=== PATIENT | female | born 1975 | race African-American/Black ===

== ENCOUNTER 2016-10-16 10:36 | Emergency (ER) | payer SELFPAY ==
[~2016-10-16] VITALS: Ht 162.6 cm; Wt 68.0 kg
[~2016-10-16 10:36] MED LIST: ALEVE220 M1 PO; CORTISPORIN OP7.5 ML OP; CYCLOBENZAPR10 MG PO; LORTAB 5 OR; MOTRIN800 MG/TAB PO; NAPROSYN500 MG PO; NO HOME MEDS; OXYCODONE10 M2 OR; PATANOL0.1 % OP
[2016-10-16] MEDS ORDERED: OXYCODONE30 MG PO (10:45)
[2016-10-16] MEDS ORDERED: MOTRIN200 MG PO (10:46)
[2016-10-16 11:00] VITALS: BP 117/79
[2016-10-16] MEDS ORDERED: FLEXERIL PO (11:02)
[2016-10-16] MEDS ORDERED: EC-NAPROSYN500 MG PO (11:02)
[2016-10-16] MEDS ORDERED: PERCOCET 5/325M1 TAB PO (11:02)
== END 2016-10-16 11:17 | disposition home or self-care (01) | DRG 552 ==
LOC: ED 10:36
DX: M54.31 Sciatica, right side (principal); F17.210 Nicotine dependence, cigarettes, uncomplicated

== ENCOUNTER 2017-12-29 14:06 | Emergency (ER) | payer SELFPAY ==
[~2017-12-29] VITALS: Ht 162.6 cm; Wt 55.0 kg
[~2017-12-29 14:06] MED LIST changes: +EC-NAPROSYN500 MG PO; +FLEXERIL PO; +MOTRIN200 MG PO; +OXYCODONE30 MG PO; +PERCOCET 5/325M1 TAB PO
[2017-12-29] MEDS ORDERED: FLEXERIL PO (14:42)
[2017-12-29] MEDS ORDERED: NAPROSYN500 MG PO (14:42)
[2017-12-29 15:00] VITALS: BP 117/85
== END 2017-12-29 15:00 | disposition home or self-care (01) | DRG 563 ==
LOC: ED 14:06
DX: S46.912A Strain of unspecified muscle, fascia and tendon at shoulder and upper arm level, left arm, initial encounter (principal); F17.200 Nicotine dependence, unspecified, uncomplicated; X50.0XXA Overexertion from strenuous movement or load, initial encounter; Y93.E2 Activity, laundry; Y92.89 Other specified places as the place of occurrence of the external cause; Y99.0 Civilian activity done for income or pay

== ENCOUNTER 2018-09-18 13:44 | Emergency (ER) | payer SELFPAY ==
[~2018-09-18] VITALS: Ht 162.6 cm; Wt 61.4 kg
[2018-09-18 15:05] VITALS: BP 102/77
== END 2018-09-18 15:05 | disposition home or self-care (01) | DRG 563 ==
LOC: ED 13:44
PROC: 2W3GX1Z Immobilization of Right Thumb using Splint (ICD-10-PCS; principal; 2018-09-18)
DX: S62.521A Displaced fracture of distal phalanx of right thumb, initial encounter for closed fracture (principal); F17.210 Nicotine dependence, cigarettes, uncomplicated; W23.0XXA Caught, crushed, jammed, or pinched between moving objects, initial encounter; Y93.K1 Activity, walking an animal

== ENCOUNTER 2018-11-13 23:20 | Emergency (ER) | payer SELFPAY ==
[~2018-11-13] VITALS: Ht 162.6 cm; Wt 61.4 kg
[2018-11-14] MEDS ORDERED: ULTRAM50 M1 PO (00:17)
[2018-11-14 00:23] VITALS: BP 102/71
== END 2018-11-14 00:31 | disposition home or self-care (01) | DRG 563 ==
LOC: ED 23:20
DX: S43.402A Unspecified sprain of left shoulder joint, initial encounter (principal); F17.210 Nicotine dependence, cigarettes, uncomplicated; W01.0XXA Fall on same level from slipping, tripping and stumbling without subsequent striking against object, initial encounter; Y92.009 Unspecified place in unspecified non-institutional (private) residence as the place of occurrence of the external cause

== ENCOUNTER 2019-12-19 15:59 | Emergency (ER) | payer SELFPAY ==
[~2019-12-19] VITALS: Ht 162.6 cm; Wt 45.5 kg
[~2019-12-19 15:59] MED LIST changes: +ULTRAM50 M1 PO
[2019-12-19] MEDS ORDERED: CYCLOBENZAPR5 MG PO (16:45)
[2019-12-19] MEDS ORDERED: VITAMIN D350000 UNIT PO (16:46)
[2019-12-19] MEDS ORDERED: OFLOXACIN0.3 % OS (17:13)
[2019-12-19 17:20] VITALS: BP 119/62
== END 2019-12-19 17:20 | disposition home or self-care (01) | DRG 125 ==
LOC: ED 15:59
DX: S05.02XA Injury of conjunctiva and corneal abrasion without foreign body, left eye, initial encounter (principal); F17.200 Nicotine dependence, unspecified, uncomplicated; X58.XXXA Exposure to other specified factors, initial encounter

== ENCOUNTER 2020-11-05 22:52 | Emergency (ER) | payer BC ==
[~2020-11-05] VITALS: Ht 162.6 cm; Wt 59.0 kg
[~2020-11-05 22:52] MED LIST changes: +CYCLOBENZAPR5 MG PO; +OFLOXACIN0.3 % OS; +VITAMIN D350000 UNIT PO
[2020-11-05] MEDS ORDERED: FLEXERIL5 M1 PO (23:16)
[2020-11-05] MEDS ORDERED: VOLTAREN75 MG PO (23:16)
[2020-11-05 23:40] VITALS: BP 115/83
== END 2020-11-05 23:50 | disposition home or self-care (01) | DRG 563 ==
LOC: ED 22:52
DX: S39.012A Strain of muscle, fascia and tendon of lower back, initial encounter (principal); F17.200 Nicotine dependence, unspecified, uncomplicated; X50.0XXA Overexertion from strenuous movement or load, initial encounter

== ENCOUNTER 2021-06-22 16:01 | Emergency (ER) | payer BC ==
[~2021-06-22] VITALS: Ht 162.6 cm; Wt 86.0 kg
[~2021-06-22 16:01] MED LIST changes: +FLEXERIL5 M1 PO; +VOLTAREN75 MG PO
[2021-06-22] MEDS ORDERED: IBUPROFEN600 MG PO (20:09)
[2021-06-22 20:18] VITALS: BP 119/78
== END 2021-06-22 20:26 | disposition home or self-care (01) | DRG 556 ==
LOC: ED 16:01
DX: M25.572 Pain in left ankle and joints of left foot (principal); M79.672 Pain in left foot; F17.200 Nicotine dependence, unspecified, uncomplicated; W22.09XA Striking against other stationary object, initial encounter; Y92.007 Garden or yard of unspecified non-institutional (private) residence as the place of occurrence of the external cause; Z86.16 Personal history of COVID-19

== ENCOUNTER 2021-12-03 22:22 | Emergency (ER) | payer BC ==
[~2021-12-03] VITALS: Ht 162.6 cm; Wt 68.0 kg
[~2021-12-03 22:22] MED LIST changes: +IBUPROFEN600 MG PO
[2021-12-03 22:53] VITALS: BP 109/70
[2021-12-03 23:01] VITALS: BP 87/57
[2021-12-03 23:04] VITALS: BP 121/91
[2021-12-03 23:33] VITALS: BP 142/98
[2021-12-03] MEDS ORDERED: [UNRECOGNIZED DRUG - REMARK] (23:41)
[2021-12-04 00:16] VITALS: BP 115/79
[2021-12-04 00:30] VITALS: BP 110/80
[2021-12-04] MEDS ORDERED: VOLTAREN75 MG PO (00:51)
[2021-12-04 01:00] VITALS: BP 110/77
== END 2021-12-04 01:13 | disposition home or self-care (01) | DRG 563 ==
LOC: ED 22:22
DX: S39.012A Strain of muscle, fascia and tendon of lower back, initial encounter (principal); M47.816 Spondylosis without myelopathy or radiculopathy, lumbar region; F17.200 Nicotine dependence, unspecified, uncomplicated; X50.0XXA Overexertion from strenuous movement or load, initial encounter; Y93.89 Activity, other specified; Y92.89 Other specified places as the place of occurrence of the external cause; Y99.0 Civilian activity done for income or pay; Z86.16 Personal history of COVID-19

== ENCOUNTER 2022-10-04 06:53 | Emergency (ER) | payer SELFPAY ==
[~2022-10-04] VITALS: Ht 162.6 cm; Wt 59.0 kg
[~2022-10-04 06:53] MED LIST changes: +[UNRECOGNIZED DRUG - REMARK]
[2022-10-04 07:19] VITALS: BP 102/74
[2022-10-04 07:30] VITALS: BP 113/77
[2022-10-04 07:45] VITALS: BP 103/76
[2022-10-04 08:00] VITALS: BP 100/76
[2022-10-04 09:45] VITALS: BP 100/76
== END 2022-10-04 09:54 | disposition home or self-care (01) | DRG 556 ==
LOC: ED 06:53
DX: M79.642 Pain in left hand (principal); F17.200 Nicotine dependence, unspecified, uncomplicated; Z86.16 Personal history of COVID-19

== ENCOUNTER 2022-11-19 19:31 | Emergency (ER) | payer SELFPAY ==
[~2022-11-19] VITALS: Ht 162.6 cm; Wt 57.7 kg
[2022-11-19 19:42] VITALS: BP 134/85
[2022-11-19 20:01] VITALS: BP 120/82
[2022-11-19 21:00] VITALS: BP 112/78
== END 2022-11-19 21:07 | disposition home or self-care (01) | DRG 563 ==
LOC: ED 19:31
DX: S63.502A Unspecified sprain of left wrist, initial encounter (principal); F17.200 Nicotine dependence, unspecified, uncomplicated; W01.0XXA Fall on same level from slipping, tripping and stumbling without subsequent striking against object, initial encounter; Y93.K1 Activity, walking an animal; Y92.009 Unspecified place in unspecified non-institutional (private) residence as the place of occurrence of the external cause; Z86.16 Personal history of COVID-19